=== PATIENT | male | born 1970 | race African-American/Black ===

== ENCOUNTER 2023-07-10 19:59 | Inpatient (IN) | payer OTHER ==
[2023-07-10 20:43] VITALS: BMI 29.0
[2023-07-10] MEDS ORDERED: NALOXONE HCL (KLOXXADO) 8 MG SPRAY NS PRN (23:41)
[2023-07-10] MEDS ORDERED: LOPERAMIDE HCL 2 MG CAPSULE PO PRN (23:41)
[2023-07-10] MEDS ORDERED: DICYCLOMINE HCL 10 MG CAPSULE PO PRN (23:41)
[2023-07-10] MEDS ORDERED: NALOXONE HCL 0.4 MG/ML VIAL IM PRN (23:41)
[2023-07-10] MEDS ORDERED: hydrOXYzine PAMOATE 25 MG CAPSULE (FP) PO PRN (23:41)
[2023-07-10] MEDS ORDERED: IBUPROFEN 400 MG TABLET (FP) PO PRN (23:41)
[2023-07-10] MEDS ORDERED: METHOCARBAMOL 500 MG TABLET PO PRN (23:41)
[2023-07-10] MEDS ORDERED: BENZONATATE 200 MG CAPSULE PO PRN (23:41)
[2023-07-10] MEDS ORDERED: P-EPHED 60MG/TRIPROLIDI 2.5MG TABLET PO PRN (23:41)
[2023-07-10] MEDS ORDERED: BENZOCAINE/MENTHOL (CHLORASEPTIC ) LOZENGE MM PRN (23:41)
[2023-07-10] MEDS ORDERED: MAGNESIUM HYDROX 2400MG/30ML ORAL SUSPENSION 30 ML CUP PO PRN (23:41)
[2023-07-10] MEDS ORDERED: ONDANSETRON *ODT* 4 MG TABLET SL PRN (23:41)
[2023-07-10] MEDS ORDERED: BISMUTH SUBSALICYLATE 524 MG/30 ML PO PRN (23:41)
[2023-07-10] MEDS ORDERED: POLYETHYLENE GLYCOL (HEALTHYLAX) 3350 17 GM PACKET PO PRN (23:41)
[2023-07-11] MEDS: guaiFENesin 600 MG TABLET.ER (FP) PO PRN (02:35)
[2023-07-11] MEDS ORDERED: ALBUTEROL SO4 HFA INHALER IH PRN (02:36)
[2023-07-11] MEDS: ALBUTEROL SO4 HFA INHALER IH PRN (02:51)
[2023-07-11] MEDS: MAG HYDROX/AL HYDROX/SIMETH 30 ML UNIT-DOSE CUP PO PRN (03:45)
[2023-07-11] MEDS: PRENATAL VITAMINS W/ FOLIC ACID TABLET (FP) PO SCH (10:20)
[2023-07-11 11:21] LABS: HEMATOCRIT 34.3 % (35.4-49); HEMOGLOBIN 11.6 GM/dL (11.7-16.9); MCHC 33.8 g/dl (32.0-35.9); MEAN CELL VOLUME 88.8 fl (80-96); MEAN PLT VOLUME 7.2 fl (7.5-11.1); PLATELET COUNT 299 10^3/uL (134-434); RBC 3.86 M/mm3 (4.00-5.60); WHITE BLOOD COUNT 7.7 K/mm3 (4.0-10.0)
[2023-07-11 11:42] LABS: POTASSIUM 4.3 mmol/L (3.5-5.1)
[2023-07-11 11:50] LABS: ALBUMIN 3.4 g/dl (3.4-5.0); BLOOD UREA NITROGEN 10.9 mg/dL (7-18); CALCIUM 9.2 mg/dL (8.5-10.1)
[2023-07-11 11:52] LABS: BILIRUBIN,TOTAL 0.4 mg/dL (0.2-1); TOT PROT 6.5 g/dl (6.4-8.2)
[2023-07-11 11:53] LABS: CREATININE 0.9 mg/dL (0.55-1.3)
[2023-07-11] MEDS: methaDONE HCL 10 MG TABLET (FOR DETOX USE ONLY) PO ONE (15:09)
[2023-07-11] MEDS: ALBUTEROL SO4 0.083% IH SOL 2.5 MG/3 ML VIAL.NEB. NEB PRN (16:29)
[2023-07-11] MEDS: MELATONIN 5 MG TABLETS PO SCH (22:59)
[2023-07-11] MEDS: THIAMINE HCL 100 MG TABLET (FP) PO SCH (22:59)
[2023-07-12] MEDS: diphenhydrAMINE HCL 25 MG CAPSULE (FP) PO ONE (18:23)
[2023-07-13] MEDS: IBUPROFEN 600 MG TABLET (FP) PO PRN (02:41)
[2023-07-13] MEDS: cloNIDine HCL 0.1 MG TABLET PO PRN (02:42)
[2023-07-13] MEDS: methaDONE HCL 10 MG TABLET (FOR DETOX USE ONLY) PO ONE (10:19)
[2023-07-13] MEDS: ASPIRIN 81 MG CHEWABLE TABLETS PO SCH (11:44)
[2023-07-14] MEDS: MELATONIN 5 MG TABLETS PO ONE (01:00)
[2023-07-14] MEDS ORDERED: ALBUTEROL SO4 HFA INHALER IH PRN (15:25)
[2023-07-14] MEDS: predniSONE 20 MG TABLET (UD) PO SCH ×2 (17:20→17:29)
[2023-07-14] MEDS ORDERED: INCRUSE ELLIPTA 62.5 MCG IH SCH (22:00)
[2023-07-14] MEDS ORDERED: PATIENT'S OWN MEDICATION (NON-FORMULARY) (Amoxicillin [Amoxicillin] 875 MG Tablet) PO SCH (22:00)
[2023-07-14] MEDS: CHOLECALCIFEROL (VIT D3) 1,000 UNIT (25 MCG) TABLET PO SCH (22:19)
[2023-07-14] MEDS: AMOXICILLIN 500 MG CAPSULE (FP) PO SCH (22:19)
[2023-07-14] MEDS: BUDESONIDE/FORMETEROL FUMARATE 160/4.5 mcg INHALER IH SCH (22:20)
[2023-07-14] MEDS: FLUTICASONE PROP 0.05% 16 GM NASAL SPRAY NS SCH (22:20)
[2023-07-15] MEDS: TIOTROPIUM BROMIDE 2.5 MCG (SPIRIVA) RESPIMAT INHALER IH SCH (09:33)
[2023-07-15] MEDS: methaDONE HCL 10 MG TABLET (FOR DETOX USE ONLY) PO ONE (09:34)
[2023-07-15 11:54] LABS: BASO % 0.6 % (0-2.0); EOS % 0.4 % (0-4.5); HEMATOCRIT 40.4 % (35.4-49); HEMOGLOBIN 14.1 GM/dL (11.7-16.9); LYMPH % 30.7 % (8-40); MCH 30.5 pg (25.7-33.7); MCHC 34.8 g/dl (32.0-35.9); MEAN CELL VOLUME 87.5 fl (80-96); MEAN PLT VOLUME 6.9 fl (7.5-11.1); MONO % 7.2 % (3.8-10.2); NEUT % 61.1 % (42.8-82.8); PLATELET COUNT 386 10^3/uL (134-434); RBC 4.62 M/mm3 (4.00-5.60); RDW 13.9 % (11.9-15.9); WHITE BLOOD COUNT 14.1 K/mm3 (4.0-10.0)
[2023-07-15 12:37] LABS: POTASSIUM 4.1 mmol/L (3.5-5.1)
[2023-07-15 12:42] LABS: BLOOD UREA NITROGEN 9.2 mg/dL (7-18); CALCIUM 9.8 mg/dL (8.5-10.1)
[2023-07-15 12:45] LABS: CREATININE 0.8 mg/dL (0.55-1.3)
[2023-07-15] MEDS: hydrOXYzine PAMOATE 25 MG CAPSULE (FP) PO PRN (22:30)
[2023-07-15] MEDS: ROSUVASTATIN CA 20 MG TABLET PO SCH (23:19)
[2023-07-16] MEDS: ACETAMINOPHEN 325 MG TABLET (FP) PO PRN (02:01)
[2023-07-16 09:13] VITALS: BP 126/73; PULSE 89; RESP 18; TEMP 99.3
== END 2023-07-16 12:40 | disposition other institution (70) | DRG 773 ==
LOC: YASAS 19:59 → Y3N 07-11 01:46
PROVIDERS: ADMIT Allergy & Immunology; ATTEND Psychiatry & Neurology Pain Medicine
PROC: HZ2ZZZZ Detoxification Services for Substance Abuse Treatment (ICD-10-PCS; principal; 2023-07-11)
DX: F11.23 Opioid dependence with withdrawal (principal); F41.9 Anxiety disorder, unspecified; E78.5 Hyperlipidemia, unspecified; J06.9 Acute upper respiratory infection, unspecified; J45.909 Unspecified asthma, uncomplicated; J44.9 Chronic obstructive pulmonary disease, unspecified; K21.9 Gastro-esophageal reflux disease without esophagitis; Z87.891 Personal history of nicotine dependence; Z28.310 Unvaccinated for COVID-19; Z28.9 Immunization not carried out for unspecified reason
CPT/HCPCS: 0241U-QW; 36415; 80048; 80053; 82962; 83880; 85025; 85027; 86780; 87635; 87811; 93005; 93010; 94640

== ENCOUNTER 2023-07-16 12:43 | Inpatient (IN) | payer OTHER ==
[2023-07-16] MEDS ORDERED: BENZONATATE 200 MG CAPSULE PO PRN (14:14)
[2023-07-16] MEDS ORDERED: NALOXONE HCL 0.4 MG/ML VIAL IVPUSH PRN (14:14)
[2023-07-16] MEDS ORDERED: POLYETHYLENE GLYCOL (HEALTHYLAX) 3350 17 GM PACKET PO PRN (14:14)
[2023-07-16] MEDS ORDERED: guaiFENesin 600 MG TABLET.ER (FP) PO PRN (14:14)
[2023-07-16] MEDS ORDERED: LOPERAMIDE HCL 2 MG CAPSULE PO PRN (14:14)
[2023-07-16] MEDS ORDERED: NALOXONE HCL (KLOXXADO) 8 MG SPRAY NS PRN (14:14)
[2023-07-16] MEDS ORDERED: NICOTINE POLACRILEX 4 MG GUM BUC PRN (14:14)
[2023-07-16] MEDS ORDERED: BENZOCAINE/MENTHOL (CHLORASEPTIC ) LOZENGE MM PRN (14:14)
[2023-07-16] MEDS ORDERED: NICOTINE POLACRILEX 2 MG LOZENGE BC PRN (14:14)
[2023-07-16] MEDS ORDERED: MAGNESIUM HYDROX 2400MG/30ML ORAL SUSPENSION 30 ML CUP PO PRN (14:14)
[2023-07-16] MEDS: ALBUTEROL SO4 HFA INHALER IH PRN (17:42)
[2023-07-16] MEDS: THIAMINE HCL 100 MG TABLET (FP) PO SCH (21:08)
[2023-07-16] MEDS: MELATONIN 5 MG TABLETS PO SCH (21:08)
[2023-07-16] MEDS: BUDESONIDE/FORMETEROL FUMARATE 160/4.5 mcg INHALER IH SCH (21:09)
[2023-07-16] MEDS: FLUTICASONE PROP 0.05% 16 GM NASAL SPRAY NS SCH (21:09)
[2023-07-16] MEDS: AMOXICILLIN 500 MG CAPSULE (FP) PO SCH (21:09)
[2023-07-16] MEDS: ROSUVASTATIN CA 20 MG TABLET PO SCH (21:10)
[2023-07-16] MEDS ORDERED: CHOLECALCIFEROL (VIT D3) 1,000 UNIT (25 MCG) TABLET PO SCH (22:00)
[2023-07-17] MEDS: NICOTINE 21 MG/24 HOURS TOPICAL PATCH TD SCH (10:08)
[2023-07-17] MEDS: PRENATAL VITAMINS W/ FOLIC ACID TABLET (FP) PO SCH (10:11)
[2023-07-17] MEDS: ONDANSETRON *ODT* 4 MG TABLET SL PRN (11:27)
[2023-07-17] MEDS: CHOLECALCIFEROL (VIT D3) 400 UNIT (10 MCG) TABLET PO SCH (13:08)
[2023-07-17] MEDS: ASPIRIN 81 MG CHEWABLE TABLETS PO SCH (13:08)
[2023-07-17] MEDS: predniSONE 10 MG TABLET (UD) PO ONE (13:10)
[2023-07-17] MEDS ORDERED: TIOTROPIUM BROMIDE 2.5 MCG (SPIRIVA) RESPIMAT INHALER IH SCH (15:15)
[2023-07-18] MEDS: hydrOXYzine PAMOATE 25 MG CAPSULE (FP) PO PRN (06:36)
[2023-07-18] MEDS ORDERED: BISMUTH SUBSALICYLATE 524 MG/30 ML PO PRN (09:52)
[2023-07-18] MEDS: TIOTROPIUM BROMIDE 2.5 MCG (SPIRIVA) RESPIMAT INHALER IH SCH (10:50)
[2023-07-18] MEDS: predniSONE 20 MG TABLET (UD) PO ONE (10:52)
[2023-07-18] MEDS: METHOCARBAMOL 500 MG TABLET PO PRN (10:55)
[2023-07-18] MEDS: BUPRENORPHINE HCL 150 MCG, BUPRENORPHINE HCL 75 MCG BC ONE (10:56)
[2023-07-18] MEDS: DICYCLOMINE HCL 10 MG CAPSULE PO PRN (14:40)
[2023-07-18] MEDS: ACETAMINOPHEN 325 MG TABLET (FP) PO PRN (14:46)
[2023-07-18] MEDS: BUPRENORPHINE HCL 150 MCG, BUPRENORPHINE HCL 75 MCG BC PRN (18:31)
[2023-07-18] MEDS: CYCLOBENZAPRINE HCL 10 MG TABLET (FP) PO SCH (21:54)
[2023-07-18] MEDS: IBUPROFEN 600 MG TABLET (FP) PO PRN (21:54)
[2023-07-18] MEDS: cloNIDine HCL 0.1 MG TABLET PO PRN (21:54)
[2023-07-18] MEDS ORDERED: CYCLOBENZAPRINE HCL 5 MG TABLET PO SCH (22:00)
[2023-07-18] MEDS: ACETAMINOPHEN 325 MG TABLET (FP) PO ONE (22:15)
[2023-07-18] MEDS: BUPRENORPHINE/NALOXONE 8 MG/2 MG FILM PACKET SL ONE (22:19)
[2023-07-19] MEDS: BUPRENORPHINE HCL 150 MCG, BUPRENORPHINE HCL 75 MCG BC SCH (06:21)
[2023-07-19] MEDS: predniSONE 10 MG TABLET (UD) PO ONE (09:51)
[2023-07-19] MEDS: BUPRENORPHINE HCL 150 MCG, BUPRENORPHINE HCL 75 MCG BC PRN (12:31)
[2023-07-20] MEDS: BUPRENORPHINE HCL 450 MCG FILM BC SCH (06:32)
[2023-07-20] MEDS: predniSONE 5 MG TABLET (UD) PO SCH (10:56)
[2023-07-21] MEDS: BACLOFEN 10 MG TABLET (FP) PO SCH (13:04)
[2023-07-21] MEDS: MAG HYDROX/AL HYDROX/SIMETH 30 ML UNIT-DOSE CUP PO PRN (19:27)
[2023-07-21] MEDS: MELATONIN 5 MG TABLETS PO SCH (21:02)
[2023-07-22] MEDS: BUPRENORPHINE HCL 450 MCG FILM BC SCH (11:29)
[2023-07-23] MEDS: BUPRENORPHINE/NALOXONE 8 MG/2 MG FILM PACKET SL SCH (10:51)
[2023-07-23] MEDS: IBUPROFEN 400 MG TABLET (FP) PO PRN (21:28)
[2023-07-24 07:22] VITALS: TEMP 97.5
[2023-07-24 09:07] VITALS: BP 163/92; PULSE 100; RESP 18
== END 2023-07-24 09:50 | disposition left against medical advice (07) | DRG 770 ==
LOC: YASAS 12:43 → Y3W 12:49
PROVIDERS: ADMIT Allergy & Immunology; ATTEND Psychiatry & Neurology Pain Medicine
PROC: HZ42ZZZ Group Counseling for Substance Abuse Treatment, Cognitive-Behavioral (ICD-10-PCS; principal; 2023-07-16)
DX: F11.20 Opioid dependence, uncomplicated (principal); F17.210 Nicotine dependence, cigarettes, uncomplicated; F41.8 Other specified anxiety disorders; E78.5 Hyperlipidemia, unspecified; J44.1 Chronic obstructive pulmonary disease with (acute) exacerbation; K21.9 Gastro-esophageal reflux disease without esophagitis
CPT/HCPCS: 71045-TC-FY; J0475; Q0162

== ENCOUNTER 2023-12-16 10:16 | Inpatient (IN) | payer OTHER ==
[2023-12-16 11:08] VITALS: BMI 30.2
[2023-12-16] MEDS ORDERED: LOPERAMIDE HCL 2 MG CAPSULE PO PRN (11:26)
[2023-12-16] MEDS ORDERED: BENZONATATE 200 MG CAPSULE PO PRN (11:26)
[2023-12-16] MEDS ORDERED: IBUPROFEN 400 MG TABLET (FP) PO PRN (11:26)
[2023-12-16] MEDS ORDERED: POLYETHYLENE GLYCOL (HEALTHYLAX) 3350 17 GM PACKET PO PRN (11:26)
[2023-12-16] MEDS ORDERED: IBUPROFEN 600 MG TABLET (FP) PO PRN (11:26)
[2023-12-16] MEDS ORDERED: ACETAMINOPHEN 325 MG TABLET (FP) PO PRN (11:26)
[2023-12-16] MEDS ORDERED: guaiFENesin 600 MG TABLET.ER (FP) PO PRN (11:26)
[2023-12-16] MEDS ORDERED: NALOXONE (NARCAN) HCL 4 MG/0.1 ML SPRAY NS PRN (11:26)
[2023-12-16] MEDS ORDERED: NALOXONE HCL 0.4 MG/ML VIAL IM PRN (11:26)
[2023-12-16] MEDS ORDERED: BENZOCAINE/MENTHOL (CHLORASEPTIC ) LOZENGE MM PRN (11:26)
[2023-12-16] MEDS ORDERED: DICYCLOMINE HCL 10 MG CAPSULE PO PRN (11:26)
[2023-12-16] MEDS: PRENATAL VITAMINS W/ FOLIC ACID TABLET (FP) PO SCH (12:31)
[2023-12-16] MEDS ORDERED: ALBUTEROL SO4 HFA INHALER IH PRN (13:25)
[2023-12-16] MEDS: methaDONE HCL 10 MG TABLET (FOR DETOX USE ONLY) PO ONE ×2 (14:14→15:36)
[2023-12-16] MEDS: hydrOXYzine PAMOATE 25 MG CAPSULE (FP) PO PRN (14:14)
[2023-12-16] MEDS: METHOCARBAMOL 500 MG TABLET PO PRN (14:14)
[2023-12-16] MEDS: BUDESONIDE/FORMETEROL FUMARATE 160/4.5 mcg INHALER IH SCH (22:24)
[2023-12-16] MEDS: MELATONIN 5 MG TABLETS PO SCH (22:24)
[2023-12-16] MEDS: cloNIDine HCL 0.1 MG TABLET PO PRN (22:29)
[2023-12-16] MEDS: CARVEDILOL 3.125 MG TABLET (FP) PO SCH (22:30)
[2023-12-16] MEDS: ROSUVASTATIN CA 20 MG TABLET PO SCH (22:30)
[2023-12-16] MEDS: THIAMINE 100 MG TABLET PO SCH (22:42)
[2023-12-17] MEDS: ONDANSETRON *ODT* 4 MG TABLET SL PRN (08:50)
[2023-12-17] MEDS: ASPIRIN 81 MG CHEWABLE TABLETS PO SCH (09:20)
[2023-12-17] MEDS: LOSARTAN POTASSIUM 25 MG TABLET PO SCH (09:20)
[2023-12-17] MEDS: methaDONE HCL 10 MG TABLET (FOR DETOX USE ONLY) PO ONE (11:15)
[2023-12-17] MEDS: BUPRENORPHINE/NALOXONE 0.5 MG/0.125 MG FILM SL ONE (11:19)
[2023-12-17 11:52] LABS: HEMATOCRIT 41.5 % (35.4-49); HEMOGLOBIN 14.4 GM/dL (11.7-16.9); MCH 30.1 pg (25.7-33.7); MCHC 34.6 g/dl (32.0-35.9); MEAN CELL VOLUME 86.9 fl (80-96); MEAN PLT VOLUME 6.7 fl (7.5-11.1); PLATELET COUNT 312 10^3/uL (134-434); RBC 4.77 M/mm3 (4.00-5.60); WHITE BLOOD COUNT 8.6 K/mm3 (4.0-10.0)
[2023-12-17] MEDS ORDERED: cloNIDine HCL 0.1 MG TABLET PO SCH (14:00)
[2023-12-17 14:01] LABS: CHLORIDE 101 mmol/L (98-107); POTASSIUM 4.2 mmol/L (3.5-5.1); SODIUM 138 mmol/L (136-145)
[2023-12-17 14:04] LABS: CALCIUM 9.2 mg/dL (8.5-10.1); GLUCOSE,RANDOM 136 mg/dL (74-106)
[2023-12-17 14:05] LABS: ALBUMIN 3.6 g/dl (3.4-5.0)
[2023-12-17 14:07] LABS: SGPT/ALT 20 U/L (13-61)
[2023-12-17 14:08] LABS: SGOT/AST 16 U/L (15-37)
[2023-12-17 14:09] LABS: BILIRUBIN,TOTAL 1.6 mg/dL (0.2-1); TOT PROT 6.9 g/dl (6.4-8.2)
[2023-12-17 14:10] LABS: ALK PHOS 83 U/L (45-117)
[2023-12-17 14:13] LABS: CO2 33 mmol/L (21-32); CREATININE 0.9 mg/dL (0.55-1.3)
[2023-12-17] MEDS: ALBUTEROL SO4 HFA INHALER IH PRN (17:40)
[2023-12-17] MEDS ORDERED: BUPRENORPHINE/NALOXONE 0.5 MG/0.125 MG FILM SL ONE (23:00)
[2023-12-18] MEDS: MAG HYDROX/AL HYDROX/SIMETH 30 ML UNIT-DOSE CUP PO PRN (06:30)
[2023-12-18] MEDS ORDERED: BUPRENORPHINE/NALOXONE 8 MG/2 MG FILM PACKET SL SCH (10:00)
[2023-12-18] MEDS ORDERED: methaDONE HCL 10 MG TABLET (FOR DETOX USE ONLY) PO ONE ×2 (10:00)
[2023-12-18] MEDS ORDERED: BUPRENORPHINE/NALOXONE 0.5 MG/0.125 MG FILM SL SCH (10:00)
[2023-12-18] MEDS: methaDONE HCL 10 MG TABLET (FOR DETOX USE ONLY) PO ONE (10:45)
[2023-12-18] MEDS: diazePAM 5 MG TABLET PO PRN (17:28)
[2023-12-19] MEDS ORDERED: methaDONE HCL 10 MG TABLET (FOR DETOX USE ONLY) PO ONE (10:00)
[2023-12-19] MEDS ORDERED: BUPRENORPHINE/NALOXONE 2 MG/0.5 MG FILM PACKET SL SCH (10:00)
[2023-12-19] MEDS ORDERED: SUVOREXANT 10 MG TABLET PO PRN (22:00)
[2023-12-20] MEDS: ASCORBIC ACID 500 MG TABLET (FP) PO SCH (00:31)
[2023-12-20] MEDS: methaDONE HCL 10 MG TABLET (FOR DETOX USE ONLY) PO ONE (09:49)
[2023-12-20] MEDS ORDERED: methaDONE HCL 10 MG TABLET (FOR DETOX USE ONLY) PO ONE ×2 (10:00)
[2023-12-20] MEDS ORDERED: BUPRENORPHINE/NALOXONE 4 MG/1 MG FILM PACKET SL SCH (10:00)
[2023-12-21] MEDS: BISMUTH SUBSALICYLATE 262 MG/15 ML BTL PO PRN (09:14)
[2023-12-21] MEDS ORDERED: BUPRENORPHINE/NALOXONE 8 MG/2 MG FILM PACKET SL SCH (10:00)
[2023-12-21] MEDS ORDERED: methaDONE HCL 10 MG TABLET (FOR DETOX USE ONLY) PO ONE (10:00)
[2023-12-22] MEDS: MAGNESIUM HYDROX 2400MG/30ML ORAL SUSPENSION 30 ML CUP PO PRN (08:54)
[2023-12-22 09:45] VITALS: BP 137/87; PULSE 94; RESP 16; TEMP 97.8
[2023-12-22] MEDS: methaDONE HCL 10 MG TABLET PO ONE (09:53)
[2023-12-22] MEDS ORDERED: BUPRENORPHINE/NALOXONE 8 MG/2 MG FILM PACKET SL SCH ×2 (10:00)
[2023-12-22 12:09] LABS: CHOLESTEROL 233 mg/dL (50-200)
[2023-12-22 12:11] LABS: LDL CHOLESTEROL (ONLY SJRH) 161 mg/dL (5-100)
[2023-12-22 12:12] LABS: HDL CHOLESTEROL 62 mg/dL (40-60)
== END 2023-12-22 12:35 | disposition other institution (70) | DRG 773 ==
LOC: YASAS 10:16 → Y6N 11:52
PROVIDERS: ADMIT Allergy & Immunology; ATTEND Allergy & Immunology
PROC: HZ2ZZZZ Detoxification Services for Substance Abuse Treatment (ICD-10-PCS; principal; 2023-12-16)
DX: F11.23 Opioid dependence with withdrawal (principal); F19.280 Other psychoactive substance dependence with psychoactive substance-induced anxiety disorder; F19.282 Other psychoactive substance dependence with psychoactive substance-induced sleep disorder; F41.9 Anxiety disorder, unspecified; I11.0 Hypertensive heart disease with heart failure; I50.9 Heart failure, unspecified; J44.9 Chronic obstructive pulmonary disease, unspecified; K21.9 Gastro-esophageal reflux disease without esophagitis; E11.9 Type 2 diabetes mellitus without complications; Z87.891 Personal history of nicotine dependence
CPT/HCPCS: 36415; 80053; 80061; 80305; 80307; 83036; 85027; 86780; 87811; 93005; 93010; Q0162

== ENCOUNTER 2023-12-22 12:44 | Inpatient (IN) | payer OTHER ==
[2023-12-22] MEDS ORDERED: guaiFENesin 600 MG TABLET.ER (FP) PO PRN (13:58)
[2023-12-22] MEDS ORDERED: NALOXONE HCL 0.4 MG/ML VIAL IVPUSH PRN (13:58)
[2023-12-22] MEDS ORDERED: MAGNESIUM HYDROX 2400MG/30ML ORAL SUSPENSION 30 ML CUP PO PRN (13:58)
[2023-12-22] MEDS ORDERED: NICOTINE POLACRILEX 4 MG GUM BUC PRN (13:58)
[2023-12-22] MEDS ORDERED: BENZONATATE 200 MG CAPSULE PO PRN (13:58)
[2023-12-22] MEDS ORDERED: NICOTINE POLACRILEX 4 MG LOZENGE BC PRN (13:58)
[2023-12-22] MEDS ORDERED: IBUPROFEN 400 MG TABLET (FP) PO PRN (13:58)
[2023-12-22] MEDS ORDERED: NALOXONE (NARCAN) HCL 4 MG/0.1 ML SPRAY NS PRN ×2 (13:58→14:00)
[2023-12-22] MEDS ORDERED: NICOTINE 14 MG/24 HOURS TOPICAL PATCH TD PRN (13:58)
[2023-12-22] MEDS ORDERED: POLYETHYLENE GLYCOL (HEALTHYLAX) 3350 17 GM PACKET PO PRN (13:58)
[2023-12-22] MEDS ORDERED: LOPERAMIDE HCL 2 MG CAPSULE PO PRN (13:58)
[2023-12-22] MEDS: ALBUTEROL SO4 HFA INHALER IH PRN (14:14)
[2023-12-22] MEDS: MAG HYDROX/AL HYDROX/SIMETH 30 ML UNIT-DOSE CUP PO PRN (16:03)
[2023-12-22] MEDS: METHOCARBAMOL 500 MG TABLET PO PRN (19:43)
[2023-12-22] MEDS: MELATONIN 5 MG TABLETS PO SCH (21:18)
[2023-12-22] MEDS: BUDESONIDE/FORMETEROL FUMARATE 160/4.5 mcg INHALER IH SCH (21:19)
[2023-12-22] MEDS: THIAMINE 100 MG TABLET PO SCH (21:19)
[2023-12-22] MEDS: CARVEDILOL 3.125 MG TABLET (FP) PO SCH (21:19)
[2023-12-23] MEDS ORDERED: ROSUVASTATIN CA 10 MG TABLET ONE (10:40)
[2023-12-23] MEDS: PRENATAL VITAMINS W/ FOLIC ACID TABLET (FP) PO SCH (10:53)
[2023-12-23] MEDS: ASPIRIN 81 MG CHEWABLE TABLETS PO SCH (10:53)
[2023-12-23] MEDS: ROSUVASTATIN CA 20 MG TABLET PO SCH (10:54)
[2023-12-23] MEDS: PANTOPRAZOLE 40 MG TABLET PO SCH (10:55)
[2023-12-23] MEDS: LOSARTAN POTASSIUM 25 MG TABLET PO SCH (11:12)
[2023-12-23] MEDS: ASCORBIC ACID 250 MG TABLET (FP) PO SCH (12:18)
[2023-12-23] MEDS: BACLOFEN 10 MG TABLET (FP) PO SCH (13:38)
[2023-12-23] MEDS: INSULIN ASPART SLIDING SCALE (NOVOLOG) 1 VIAL SQ SCH (16:55)
[2023-12-23] MEDS: hydrOXYzine PAMOATE 25 MG CAPSULE (FP) PO PRN (17:44)
[2023-12-24] MEDS: ONDANSETRON *ODT* 4 MG TABLET SL PRN (09:21)
[2023-12-25] MEDS ORDERED: ROSUVASTATIN CA 10 MG TABLET ONE (08:14)
[2023-12-25] MEDS: SUVOREXANT 10 MG TABLET PO PRN (22:33)
[2023-12-26] MEDS ORDERED: INSULIN (NOVOLOG) ASPART 100 UNITS/ML 10ML VIAL ONE (07:09)
[2023-12-26] MEDS ORDERED: ROSUVASTATIN CA 10 MG TABLET ONE (08:10)
[2023-12-26] MEDS: traZODone HCL 50 MG TABLET (FP) PO SCH (22:00)
[2023-12-27] MEDS ORDERED: INSULIN (NOVOLOG) ASPART 100 UNITS/ML 10ML VIAL ONE (06:58)
[2023-12-27] MEDS: cloNIDine HCL 0.1 MG TABLET PO ONE (07:43)
[2023-12-28] MEDS: BENZOCAINE/MENTHOL (CHLORASEPTIC ) LOZENGE MM PRN (17:42)
[2023-12-29] MEDS: PANTOPRAZOLE 40 MG TABLET PO SCH (07:30)
[2023-12-29] MEDS ORDERED: INSULIN (NOVOLOG) ASPART 100 UNITS/ML 10ML VIAL ONE (16:31)
[2023-12-29] MEDS: BISMUTH SUBSALICYLATE 524 MG/30 ML PO PRN (19:40)
[2023-12-30] MEDS ORDERED: ROSUVASTATIN CA 10 MG TABLET ONE (08:10)
[2023-12-30] MEDS: PATIENT,S OWN MED:ALBUTEROL SO4 HFA INHALER IH PRN (12:53)
[2023-12-30] MEDS: ALBUTEROL SO4 0.083% IH SOL 2.5 MG/3 ML VIAL.NEB. NEB ONE (19:45)
[2023-12-31 12:56] LABS: POTASSIUM 4.6 mmol/L (3.5-5.1)
[2023-12-31 12:58] LABS: ALBUMIN 4.2 g/dl (3.4-5.0); CALCIUM 9.6 mg/dL (8.5-10.1)
[2023-12-31 12:59] LABS: BLOOD UREA NITROGEN 8.6 mg/dL (7-18)
[2023-12-31 13:03] LABS: TOT PROT 7.8 g/dl (6.4-8.2)
[2023-12-31 13:37] LABS: EPI CELLS 6 /uL (0-25.1); HYALINE CASTS 3 /uL (0-3.1); URINE APPEARANCE CLEAR; URINE BACTERIA 2 /uL (0-1359); URINE BILIRUBIN NEGATIVE (NEGATIVE); URINE COLOR DK YELLOW; URINE GLUCOSE (UA) NEGATIVE (NEGATIVE); URINE KETONE 1+ (NEGATIVE); URINE LEUK ESTERASE NEGATIVE (NEGATIVE); URINE NITRITE NEGATIVE (NEGATIVE); URINE PROTEIN 1+ (NEGATIVE); URINE RBC 17 /uL (0-23.9); URINE UROBILINOGEN 0.2 mg/dL (0.2-1.0); URINE WBC 7 /uL (0-25.8)
[2023-12-31] MEDS: IBUPROFEN 600 MG TABLET (FP) PO PRN (15:48)
[2024-01-01] MEDS ORDERED: INSULIN (NOVOLOG) ASPART 100 UNITS/ML 10ML VIAL ONE (06:51)
[2024-01-02] MEDS: ACETAMINOPHEN 325 MG TABLET (FP) PO PRN (17:58)
[2024-01-02] MEDS ORDERED: hydrOXYzine PAMOATE 25 MG CAPSULE (FP) PO PRN (19:00)
[2024-01-02] MEDS ORDERED: ROSUVASTATIN CA 10 MG TABLET ONE (20:23)
[2024-01-02] MEDS: MELATONIN 5 MG TABLETS PO PRN (21:13)
[2024-01-02] MEDS: ROSUVASTATIN CA 20 MG TABLET PO SCH (21:14)
[2024-01-03] MEDS: FAMOTIDINE 20 MG TABLET PO SCH (08:11)
[2024-01-03] MEDS ORDERED: ROSUVASTATIN CA 10 MG TABLET ONE (20:31)
[2024-01-04] MEDS ORDERED: ROSUVASTATIN CA 10 MG TABLET ONE (21:18)
[2024-01-05] MEDS: hydrOXYzine PAMOATE 25 MG CAPSULE (FP) PO PRN (07:50)
[2024-01-05] MEDS: BACLOFEN 10 MG TABLET (FP) PO SCH (11:00)
[2024-01-05] MEDS: propRANOLol HCL 10 MG TABLET PO SCH (11:00)
[2024-01-05] MEDS ORDERED: ROSUVASTATIN CA 10 MG TABLET ONE (20:36)
[2024-01-06] MEDS ORDERED: ROSUVASTATIN CA 10 MG TABLET ONE (20:34)
[2024-01-08] MEDS ORDERED: ACETAMINOPHEN 325 MG TABLET (FP) PO PRN ×2 (12:06→12:26)
[2024-01-09 09:04] VITALS: RESP 18
[2024-01-09] MEDS ORDERED: ROSUVASTATIN CA 10 MG TABLET ONE (20:36)
[2024-01-10 06:37] VITALS: TEMP 96.7
[2024-01-10 09:15] VITALS: BP 119/69; PULSE 85
== END 2024-01-10 11:48 | disposition home or self-care (01) | DRG 772 ==
LOC: YASAS 12:44 → Y5N 12:47
PROVIDERS: ADMIT Allergy & Immunology; ATTEND Psychiatry & Neurology Pain Medicine
PROC: HZ42ZZZ Group Counseling for Substance Abuse Treatment, Cognitive-Behavioral (ICD-10-PCS; principal; 2023-12-22)
DX: F11.20 Opioid dependence, uncomplicated (principal); F10.20 Alcohol dependence, uncomplicated; F14.20 Cocaine dependence, uncomplicated; F12.20 Cannabis dependence, uncomplicated; F17.210 Nicotine dependence, cigarettes, uncomplicated; F41.9 Anxiety disorder, unspecified; F19.982 Other psychoactive substance use, unspecified with psychoactive substance-induced sleep disorder; F19.980 Other psychoactive substance use, unspecified with psychoactive substance-induced anxiety disorder; I11.0 Hypertensive heart disease with heart failure; I50.9 Heart failure, unspecified; E78.5 Hyperlipidemia, unspecified; K21.9 Gastro-esophageal reflux disease without esophagitis; J43.9 Emphysema, unspecified; J45.909 Unspecified asthma, uncomplicated; R00.0 Tachycardia, unspecified; E11.9 Type 2 diabetes mellitus without complications; G47.00 Insomnia, unspecified
CPT/HCPCS: 36415; 80051; 80053; 81003; 82140; 82962; 93005; 93010; 94640; J0475; Q0162

== ENCOUNTER 2024-01-01 16:12 | Emergency (ER) | payer OTHER ==
[2024-01-01 16:38] VITALS: BMI 29.1
[2024-01-01] MEDS ORDERED: ALBUTEROL SO4 2.5/IPRATROPIUM 0.5 INH SOL 3 ML VIAL.NEB. NEB ONE (17:55)
[2024-01-01] MEDS ORDERED: METOCLOPRAMIDE HCL INJECTION 10 MG/2 ML VIAL ONE (17:56)
[2024-01-01] MEDS ORDERED: ACETAMINOPHEN INJECTION 100 ML IVPB ONE (17:56)
[2024-01-01] MEDS: ALBUTEROL SO4 2.5/IPRATROPIUM 0.5 INH SOL 3 ML VIAL.NEB. NEB SCH (18:00)
[2024-01-01] MEDS: METOCLOPRAMIDE HCL INJECTION 10 MG/2 ML VIAL IVPB ONE (18:15)
[2024-01-01] MEDS: ACETAMINOPHEN 1000 MG/100 ML BAG IVPB ONE (18:15)
[2024-01-01] MEDS: LACTATED RINGERS SOLUTION 1000 ML INFUS.BAG IV ONE (18:15)
[2024-01-01 18:18] LABS: BASO % 0.4 % (0-2.0); EOS % 1.7 % (0-4.5); HEMATOCRIT 40.3 % (35.4-49); LYMPH % 45.3 % (8-40); MCHC 34.7 g/dl (32.0-35.9); MEAN CELL VOLUME 86.6 fl (80-96); MEAN PLT VOLUME 6.4 fl (7.5-11.1); NEUT % 42.6 % (42.8-82.8); PLATELET COUNT 345 10^3/uL (134-434); RBC 4.65 M/mm3 (4.00-5.60); RDW 14.4 % (11.9-15.9); WHITE BLOOD COUNT 8.5 K/mm3 (4.0-10.0)
[2024-01-01 18:24] LABS: VENOUS BASE EXCESS 1.9 mmol/L (-2-2); VENOUS O2 SATURATION 50.9 % (70-80); VENOUS PCO2 51.1 mmHg (38-52); VENOUS PH 7.362 (7.310-7.410)
[2024-01-01 18:45] LABS: POTASSIUM 4.6 mmol/L (3.5-5.1)
[2024-01-01 18:47] LABS: BLOOD UREA NITROGEN 10.1 mg/dL (7-18); CALCIUM 9.4 mg/dL (8.5-10.1)
[2024-01-01 18:48] LABS: ALBUMIN 4.1 g/dl (3.4-5.0)
[2024-01-01 18:52] LABS: BILIRUBIN,TOTAL 1.3 mg/dL (0.2-1); TOT PROT 7.7 g/dl (6.4-8.2)
[2024-01-01 18:58] LABS: INR 0.99 (0.83-1.09); PROTHROMBIN TIME (PATIENT) 11.2 SEC (9.7-13.0)
[2024-01-01 19:00] LABS: ACTIVATED PTT 32.4 SECONDS (25.2-36.5)
[2024-01-01 20:37] VITALS: BP 124/76; PULSE 78; RESP 18; TEMP 98.1
[2024-01-01 21:23] LABS: HEPATITIS B SURFACE AG MATERN NON-REACTIVE (NONREACTIVE)
[2024-01-01 21:25] LABS: HIV INTERPRETATION NEGATIVE (NEGATIVE)
== END 2024-01-01 20:38 | disposition home or self-care (01) ==
LOC: JER 16:12
DX: R06.02 Shortness of breath (principal); E80.6 Other disorders of bilirubin metabolism; R00.0 Tachycardia, unspecified
CPT/HCPCS: 0241U-QW; 36415; 76705-TC; 80053; 82248; 82803; 83690; 84484; 85025; 85379; 85610; 85730; 86705; 86707; 87340; 87350; 87389; 87517; 87522; 87536; 99284-25; J0131

== ENCOUNTER 2024-06-29 10:40 | Inpatient (IN) | payer OTHER ==
[2024-06-29 11:01] VITALS: BMI 27.6
[2024-06-29] MEDS ORDERED: MAGNESIUM HYDROX 2400MG/30ML ORAL SUSPENSION 30 ML CUP PO PRN (11:15)
[2024-06-29] MEDS ORDERED: DICYCLOMINE HCL 10 MG CAPSULE PO PRN (11:15)
[2024-06-29] MEDS ORDERED: LOPERAMIDE HCL 2 MG CAPSULE PO PRN (11:15)
[2024-06-29] MEDS ORDERED: IBUPROFEN 400 MG TABLET (FP) PO PRN (11:15)
[2024-06-29] MEDS ORDERED: BENZONATATE 200 MG CAPSULE PO PRN (11:15)
[2024-06-29] MEDS ORDERED: NALOXONE (NARCAN) HCL 4 MG/0.1 ML SPRAY NS PRN (11:15)
[2024-06-29] MEDS ORDERED: POLYETHYLENE GLYCOL (HEALTHYLAX) 3350 17 GM PACKET PO PRN (11:15)
[2024-06-29] MEDS ORDERED: guaiFENesin 600 MG TABLET.ER (FP) PO PRN (11:15)
[2024-06-29] MEDS ORDERED: BENZOCAINE/MENTHOL (CHLORASEPTIC ) LOZENGE MM PRN (11:15)
[2024-06-29] MEDS ORDERED: BISMUTH SUBSALICYLATE 262 MG/15 ML BTL PO PRN (11:15)
[2024-06-29] MEDS ORDERED: ACETAMINOPHEN 325 MG TABLET (FP) PO PRN (11:15)
[2024-06-29] MEDS: BUDESONIDE/FORMETEROL FUMARATE 160/4.5 mcg INHALER IH SCH (14:07)
[2024-06-29] MEDS: ASPIRIN 81 MG CHEWABLE TABLETS PO SCH (14:07)
[2024-06-29] MEDS: ONDANSETRON *ODT* 4 MG TABLET SL PRN (16:58)
[2024-06-29] MEDS: hydrOXYzine PAMOATE 25 MG CAPSULE (FP) PO PRN (20:03)
[2024-06-29] MEDS: IBUPROFEN 600 MG TABLET (FP) PO PRN (20:03)
[2024-06-29] MEDS: METHOCARBAMOL 500 MG TABLET PO PRN (21:44)
[2024-06-29] MEDS: GABAPENTIN 100 MG CAPSULE PO SCH (21:45)
[2024-06-29] MEDS: DOXYCYCLINE HYCLATE 100 MG TABLET PO SCH (21:45)
[2024-06-29] MEDS: THIAMINE 100 MG TABLET PO SCH (21:45)
[2024-06-29] MEDS: MELATONIN 5 MG TABLETS PO SCH (21:46)
[2024-06-29] MEDS ORDERED: CARVEDILOL 3.125 MG TABLET (FP) PO SCH (22:00)
[2024-06-29] MEDS: ASCORBIC ACID 500 MG TABLET (FP) PO SCH (23:06)
[2024-06-29] MEDS: CHOLECALCIFEROL (VIT D3) 400 UNIT (10 MCG) TABLET PO SCH (23:06)
[2024-06-30] MEDS: MAG HYDROX/AL HYDROX/SIMETH 30 ML UNIT-DOSE CUP PO PRN (06:08)
[2024-06-30] MEDS: ALBUTEROL SO4 HFA INHALER IH PRN (08:42)
[2024-06-30] MEDS: PRENATAL VITAMINS W/ FOLIC ACID TABLET (FP) PO SCH (09:15)
[2024-06-30] MEDS: LOSARTAN POTASSIUM 25 MG TABLET PO SCH (09:18)
[2024-06-30] MEDS ORDERED: methaDONE HCL 10 MG TABLET (FOR DETOX USE ONLY) PO PRN (09:19)
[2024-06-30] MEDS ORDERED: cloNIDine HCL 0.1 MG TABLET PO PRN (09:19)
[2024-06-30] MEDS ORDERED: methaDONE HCL 10 MG TABLET (FOR DETOX USE ONLY) PO ONE ×2 (09:19)
[2024-06-30 09:43] LABS: HEMATOCRIT 37.4 % (35.4-49); MCH 31.2 pg (25.7-33.7); MCHC 34.6 g/dl (32.0-35.9); MEAN PLT VOLUME 6.9 fl (7.5-11.1); PLATELET COUNT 301 10^3/uL (134-434); RBC 4.16 M/mm3 (4.00-5.60); RDW 14.2 % (11.9-15.9); WHITE BLOOD COUNT 5.1 K/mm3 (4.0-10.0)
[2024-06-30] MEDS: methaDONE HCL 10 MG TABLET (FOR DETOX USE ONLY) PO ONE (09:44)
[2024-06-30 09:46] LABS: POTASSIUM 4.6 mmol/L (3.5-5.1)
[2024-06-30 10:02] LABS: ALBUMIN 3.4 g/dl (3.4-5.0)
[2024-06-30 10:03] LABS: BLOOD UREA NITROGEN 8.6 mg/dL (7-18); CALCIUM 9.4 mg/dL (8.5-10.1)
[2024-06-30 10:05] LABS: CREATININE 0.9 mg/dL (0.55-1.3)
[2024-06-30 10:06] LABS: BILIRUBIN,TOTAL 1.3 mg/dL (0.2-1)
[2024-06-30 10:07] LABS: TOT PROT 6.3 g/dl (6.4-8.2)
[2024-07-01] MEDS: methaDONE HCL 10 MG TABLET (FOR DETOX USE ONLY) PO ONE (09:28)
[2024-07-01] MEDS: SIMETHICONE 80 MG TAB.CHEW (FP) PO PRN (18:25)
[2024-07-02] MEDS: PANTOPRAZOLE 40 MG TABLET PO SCH (10:47)
[2024-07-03 09:24] LABS: BILIRUBIN,DIRECT 0.3 mg/dL (0.0-0.2)
[2024-07-03 09:26] LABS: BILIRUBIN,TOTAL 1.5 mg/dL (0.2-1)
[2024-07-03] MEDS: methaDONE HCL 10 MG TABLET (FOR DETOX USE ONLY) PO ONE (10:04)
[2024-07-05] MEDS: methaDONE HCL 10 MG TABLET (FOR DETOX USE ONLY) PO ONE (10:09)
[2024-07-06 08:59] VITALS: BP 146/83; PULSE 99; RESP 18; TEMP 97.7
== END 2024-07-06 09:44 | disposition home or self-care (01) | DRG 773 ==
LOC: YASAS 10:40 → Y6N 12:03
PROVIDERS: ADMIT Allergy & Immunology; ATTEND Allergy & Immunology
PROC: HZ2ZZZZ Detoxification Services for Substance Abuse Treatment (ICD-10-PCS; principal; 2024-06-29)
DX: F11.23 Opioid dependence with withdrawal (principal); F19.280 Other psychoactive substance dependence with psychoactive substance-induced anxiety disorder; E78.5 Hyperlipidemia, unspecified; I10 Essential (primary) hypertension; J45.909 Unspecified asthma, uncomplicated; K21.9 Gastro-esophageal reflux disease without esophagitis; G47.00 Insomnia, unspecified; Z87.01 Personal history of pneumonia (recurrent); Z87.891 Personal history of nicotine dependence
CPT/HCPCS: 36415; 80053; 80305; 80307; 82247; 82248; 85027; 86780; Q0162

== ENCOUNTER 2025-01-21 14:01 | Inpatient (IN) | payer OTHER ==
[~2025-01-21 14:01] MED LIST: BUPRENORPHINE HCL 150 MCG, BUPRENORPHINE HCL 75 MCG BC PRN
[2025-01-21 15:03] VITALS: BMI 27.3
[2025-01-21] MEDS ORDERED: BENZONATATE 200 MG CAPSULE PO PRN (15:10)
[2025-01-21] MEDS ORDERED: NALOXONE (NARCAN) HCL 4 MG/0.1 ML SPRAY NS PRN (15:10)
[2025-01-21] MEDS ORDERED: POLYETHYLENE GLYCOL (HEALTHYLAX) 3350 17 GM PACKET PO PRN (15:10)
[2025-01-21] MEDS ORDERED: ONDANSETRON *ODT* 4 MG TABLET SL PRN (15:10)
[2025-01-21] MEDS ORDERED: LOPERAMIDE HCL 2 MG CAPSULE PO PRN (15:10)
[2025-01-21] MEDS ORDERED: IBUPROFEN 600 MG TABLET (FP) PO PRN (15:10)
[2025-01-21] MEDS ORDERED: BENZOCAINE/MENTHOL (CHLORASEPTIC ) LOZENGE MM PRN (15:10)
[2025-01-21] MEDS ORDERED: guaiFENesin 600 MG TABLET.ER (FP) PO PRN (15:10)
[2025-01-21] MEDS ORDERED: hydrOXYzine PAMOATE 25 MG CAPSULE (FP) PO PRN (15:10)
[2025-01-21] MEDS ORDERED: ACETAMINOPHEN 325 MG TABLET (FP) PO PRN (15:10)
[2025-01-21] MEDS ORDERED: MAGNESIUM HYDROX 2400MG/30ML ORAL SUSPENSION 30 ML CUP PO PRN (15:10)
[2025-01-21] MEDS ORDERED: IBUPROFEN 400 MG TABLET (FP) PO PRN (15:10)
[2025-01-21] MEDS ORDERED: DICYCLOMINE HCL 10 MG CAPSULE PO PRN (15:10)
[2025-01-21] MEDS ORDERED: BISMUTH SUBSALICYLATE 524 MG/30 ML PO PRN (15:10)
[2025-01-21] MEDS ORDERED: ALBUTEROL SO4 HFA INHALER IH PRN (15:19)
[2025-01-21] MEDS ORDERED: BUPRENORPHINE HCL 150 MCG, BUPRENORPHINE HCL 75 MCG BC PRN (15:29)
[2025-01-21] MEDS ORDERED: BUPRENORPHINE HCL 150 MCG, BUPRENORPHINE HCL 75 MCG BC ONE ×2 (15:29→16:15)
[2025-01-21] MEDS ORDERED: PRENATAL VITAMINS W/ FOLIC ACID TABLET (FP) PO ONE (17:18)
[2025-01-21] MEDS: PRENATAL VITAMINS W/ FOLIC ACID TABLET (FP) PO SCH (17:24)
[2025-01-21] MEDS: COLLOIDAL OATMEAL 1 EACH PACKET TP SCH (20:37)
[2025-01-21] MEDS: BUPRENORPHINE HCL 150 MCG, BUPRENORPHINE HCL 75 MCG BC ONE (20:38)
[2025-01-21] MEDS: NICOTINE POLACRILEX 4 MG GUM BUC PRN (20:56)
[2025-01-21] MEDS: CARVEDILOL 3.125 MG TABLET (FP) PO SCH (22:17)
[2025-01-21] MEDS: THIAMINE 100 MG TABLET PO SCH (22:17)
[2025-01-21] MEDS: BUDESONIDE/FORMETEROL FUMARATE 160/4.5 mcg INHALER IH SCH (22:17)
[2025-01-21] MEDS: MELATONIN 5 MG TABLETS PO SCH (22:17)
[2025-01-21] MEDS: MAG HYDROX/AL HYDROX/SIMETH 30 ML UNIT-DOSE CUP PO PRN (22:19)
[2025-01-21] MEDS: GABAPENTIN 100 MG CAPSULE PO SCH (22:24)
[2025-01-21] MEDS ORDERED: ROSUVASTATIN CA 10 MG TABLET ONE (22:54)
[2025-01-21] MEDS: ROSUVASTATIN CA 20 MG TABLET PO SCH (22:56)
[2025-01-21] MEDS ORDERED: BUPRENORPHINE/NALOXONE 0.5 MG/0.125 MG FILM SL ONE (23:00)
[2025-01-22] MEDS ORDERED: BUPRENORPHINE HCL 150 MCG, BUPRENORPHINE HCL 75 MCG BC PRN
[2025-01-22] MEDS ORDERED: BUPRENORPHINE HCL 150 MCG, BUPRENORPHINE HCL 75 MCG BC SCH (06:00)
[2025-01-22] MEDS: BUPRENORPHINE HCL 150 MCG, BUPRENORPHINE HCL 75 MCG BC SCH (07:04)
[2025-01-22] MEDS: LOSARTAN POTASSIUM 25 MG TABLET PO SCH (09:22)
[2025-01-22] MEDS: ASPIRIN 81 MG CHEWABLE TABLETS PO SCH (09:22)
[2025-01-22 09:49] LABS: MCHC 32.5 g/dl (32.3-36.5); MEAN CELL VOLUME 92.5 fl (79.0-92.2); MEAN PLT VOLUME 8.7 fl (9.4-12.4); RDW 13.3 % (12.2-16.1)
[2025-01-22] MEDS ORDERED: BUPRENORPHINE/NALOXONE 0.5 MG/0.125 MG FILM SL SCH (10:00)
[2025-01-22 10:10] LABS: GLUCOSE,RANDOM 91.0 mg/dL (74-106); TOT PROT 6.5 g/dl (6.4-8.2)
[2025-01-22 10:11] LABS: CO2 29.0 mmol/L (21-32)
[2025-01-22 10:13] LABS: ALK PHOS 59.0 U/L (40-150)
[2025-01-22 10:15] LABS: SGOT/AST 36.0 U/L (5-34); SGPT/ALT 19.0 U/L (0-55)
[2025-01-22 11:24] LABS: CREATININE 0.74 mg/dL (0.55-1.3)
[2025-01-22] MEDS: FLUTICASONE PROP 0.05% 16 GM NASAL SPRAY NS SCH (11:54)
[2025-01-22] MEDS: BUPRENORPHINE HCL 150 MCG, BUPRENORPHINE HCL 75 MCG BC PRN (18:04)
[2025-01-23] MEDS ORDERED: BUPRENORPHINE HCL 450 MCG FILM BC SCH (06:00)
[2025-01-23] MEDS: BUPRENORPHINE 2 MG TAB.SUBL SL ONE (09:31)
[2025-01-23] MEDS ORDERED: BUPRENORPHINE/NALOXONE 2 MG/0.5 MG FILM PACKET SL SCH (10:00)
[2025-01-24] MEDS ORDERED: BUPRENORPHINE/NALOXONE 4 MG/1 MG FILM PACKET SL SCH (10:00)
[2025-01-24] MEDS: BUPRENORPHINE 2 MG TAB.SUBL SL SCH (10:26)
[2025-01-24] MEDS: BUPRENORPHINE HCL 150 MCG, BUPRENORPHINE HCL 75 MCG BC ONE (12:29)
[2025-01-25] MEDS: METHOCARBAMOL 500 MG TABLET PO PRN (05:41)
[2025-01-25] MEDS ORDERED: BUPRENORPHINE HCL 150 MCG, BUPRENORPHINE HCL 75 MCG BC SCH (06:00)
[2025-01-25] MEDS ORDERED: BUPRENORPHINE 2 MG TAB.SUBL SL SCH (10:00)
[2025-01-25] MEDS ORDERED: BUPRENORPHINE/NALOXONE 8 MG/2 MG FILM PACKET SL SCH (10:00)
[2025-01-25] MEDS ORDERED: BUPRENORPHINE 8 MG TAB.SUBL SL ONE (10:00)
[2025-01-25] MEDS: diphenhydrAMINE HCL 25 MG CAPSULE (FP) PO PRN (22:10)
[2025-01-26] MEDS ORDERED: BUPRENORPHINE HCL 450 MCG FILM BC SCH (06:00)
[2025-01-26 09:12] VITALS: TEMP 97.5
[2025-01-26] MEDS ORDERED: BUPRENORPHINE/NALOXONE 8 MG/2 MG FILM PACKET SL SCH (10:00)
[2025-01-26 13:17] VITALS: BP 121/72; PULSE 92; RESP 17
[2025-01-27] MEDS ORDERED: BUPRENORPHINE 2 MG TAB.SUBL SL SCH (11:00)
[2025-01-28] MEDS ORDERED: ERGOCALCIFEROL (VIT D2) 50,000 UNIT (1.25 MG) CAPSULE PO SCH (10:00)
[2025-01-28] MEDS ORDERED: BUPRENORPHINE 2 MG TAB.SUBL SL SCH (11:00)
[2025-01-29] MEDS ORDERED: BUPRENORPHINE 2 MG TAB.SUBL SL SCH (11:00)
[2025-01-30] MEDS ORDERED: BUPRENORPHINE 8 MG TAB.SUBL SL SCH (11:00)
== END 2025-01-26 15:55 | disposition other institution (70) | DRG 773 ==
LOC: YASAS 14:01 → Y6N 17:31
PROVIDERS: ADMIT Neuromusculoskeletal Medicine & OMM; ATTEND Counselor Addiction (Substance Use Disorder)
PROC: HZ2ZZZZ Detoxification Services for Substance Abuse Treatment (ICD-10-PCS; principal; 2025-01-21)
DX: F11.23 Opioid dependence with withdrawal (principal); F14.20 Cocaine dependence, uncomplicated; F19.282 Other psychoactive substance dependence with psychoactive substance-induced sleep disorder; F19.280 Other psychoactive substance dependence with psychoactive substance-induced anxiety disorder; F41.8 Other specified anxiety disorders; E78.5 Hyperlipidemia, unspecified; G47.00 Insomnia, unspecified; I10 Essential (primary) hypertension; K21.9 Gastro-esophageal reflux disease without esophagitis; R73.03 Prediabetes; Z87.891 Personal history of nicotine dependence
CPT/HCPCS: 36415; 80053; 82962; 85027; 86780; 93005; 93010